=== PATIENT | male | born 1945 | race Caucasian/White ===

== ENCOUNTER 2018-11-02 07:14 | Day surgery (SDC) | payer MEDICARE ==
[2018-10-25 16:27] LABS: BASOPHILS % (AUTO) 0.6 % (0-1); EOSINOPHILS # (AUTO) 0.2 X10'3 (0-0.9); EOSINOPHILS % (AUTO) 2.6 % (0-6); LYMPHOCYTES # (AUTO) 1.4 X10'3 (1.1-4.8); LYMPHOCYTES % (AUTO) 22.6 % (21-51); MEAN CORPUSCULAR HEMOGLOBIN 27.2 PG (27.0-31.0); MEAN CORPUSCULAR VOLUME 82.5 FL (78-98); MEAN PLATELET VOLUME 8.6 FL (7.4-10.4); MONOCYTES # (AUTO) 0.5 X10'3 (0-0.9); MONOCYTES % (AUTO) 8.4 % (2-12); NEUTROPHILS # (AUTO) 4.1 X10'3 (1.8-7.7); NEUTROPHILS % (AUTO) 65.8 % (42-75); PRE OP HEMATOCRIT 36.8 % (42.0-52.0); PRE OP HEMOGLOBIN 12.1 g/dL (14.0-17.9); PRE OP PLATELET COUNT 190 X10'3 (140-440); RED BLOOD COUNT 4.46 X10'6 (4.70-6.10); RED CELL DISTRIBUTION WIDTH 15.1 % (11.5-14.5)
[2018-10-25 16:40] LABS: ALBUMIN 3.2 G/DL (3.4-5.0); ALBUMIN/GLOBULIN RATIO 0.8 (1.1-1.5); ALKALINE PHOSPHATASE 83 IU/L (46-116); BLOOD UREA NITROGEN 10 MG/DL (7-18); BUN/CREATININE RATIO 14.1 (5.4-32.0); CALCIUM 8.8 MG/DL (8.5-10.1); CHLORIDE 100 MMOL/L (99-107); CREATININE 0.71 MG/DL (0.60-1.10); PRE OP ALT 15 U/L (30-65); PRE OP ANION GAP 3 (8-16); PRE OP AST 15 U/L (10-37); PRE OP BILIRUB, TOTAL 0.2 MG/DL (0.0-1.0); PRE OP POTASSIUM 3.7 MMOL/L (3.4-5.1); PRE OP SODIUM 136 MMOL/L (135-145); TOTAL CARBON DIOXIDE 32.7 MMOL/L (24-32); TOTAL PROTEIN 7.3 G/DL (6.4-8.2); eGFR > 90 ML/MIN
[2018-10-25 16:41] LABS: PRE OP GLUCOSE 88 MG/DL (70-104)
[2018-10-25 16:42] LABS: PRE OP PROTIME 10.4 SECONDS (9.0-12.0)
[~2018-11-02] VITALS: Ht 182.9 cm; Wt 118.8 kg
[2018-11-02] VITALS (18 sets, daily range): BP systolic 102–141; BP diastolic 52–80
[~2018-11-02 07:14] MED LIST: ASCO-283 PO; ASPI-612 PO; ATOR40TA PO; BACL10TA PO; BUPR1PAT20 TRANSUR; CALC300T4 PO; CHOL2000 PO; CRAN1CAP5 PO; DOCUMENT DATE & TIME OF BETA-BLOCKER PO ONE; FINA5TAB11 PO; FLO0.4C PO; GABA-532 PO; GUAI200T5 PO; HYDR-3972 PO; LEVE250T PO; LISI-642 PO; MAGN400C PO; MELA10TA2 PO; METO25TA6 PO; OMEG1CAP13 PO; PANT40TA4 PO; UBID1CAP54 PO; VENL75CA61 PO; ampicillin inj 1 GM in normal saline 100ml IV soln 100 ML IV ONE; famotidine 20mg tablet PO ONE; gentamicin inj 240 MG in normal saline 100ml IV soln 94 ML IV ONE; ringers solution, lacted 1,000 ML IV SCH
[2018-11-02] MEDS ORDERED: neomy sulf/polymyxin B sulf. GU irrigation 1ml amp IR ONE (08:52)
[2018-11-02] MEDS ORDERED: MIDAZolam 5mg/5ml vial ONE (09:59)
[2018-11-02] MEDS ORDERED: fentaNYL/PF 50MCG/1 ML 2ML syringe ONE (09:59)
[2018-11-02] MEDS ORDERED: HYDROcodone/acetaminophen 10/325mg tab PO PRN ×2 (11:00→11:30)
--- NOTE | 2018-11-02 11:11 | NUR ---
Received from OR via SURGICAL BED , accompanied by Anesthesiologist VINCENZO and report given by Anesthesiolgist. PATIENT WITH 20G PIV IN RIGHT UE RUNNING LR AT 100. DENIES PAIN. SENSATION LEVEL APPROXIMATELY AT T10-12. DIFFICULT TO OBTAIN 2' HX OF APHASIA. VSS AT THIS TIME. 3 WAY BOWERS IRRIGATION RUNNING AT THIS TIME PINK TINGED URINE IN BOWERS CATHETER. VANNESA RODRIGUEZ APPLIED FOR LOW TEMPERATURE OF 36' C. WILL CONTINUE TO ASSESS. Addendum: 11/02/18 at 1129 by Obed Vargas RN, RN Amended: Links added.
[2018-11-02] MEDS ORDERED: BUPRENORPHINE 10 MCG TRANSUR SCH (11:25)
[2018-11-02] MEDS ORDERED: mag hydrox/Alum hydrox/simeth 30ml oral suspension PO PRN (11:30)
[2018-11-02] MEDS ORDERED: oxybutynin 5mg tablet PO PRN (11:30)
[2018-11-02] MEDS ORDERED: ondansetron/PF 4mg/2ml inj IV PRN (11:30)
[2018-11-02] MEDS ORDERED: acetaminophen 325mg tablet PO PRN (11:30)
[2018-11-02] MEDS ORDERED: proCHLORperazine 10 MG/2 ml inj IV PRN (11:30)
[2018-11-02] MEDS ORDERED: zolpidem 5mg tablet PO PRN (11:30)
--- NOTE | 2018-11-02 11:42 | NUR ---
MD LOYA NOTIFIED OF BLOOD GLUCOSE OF 71. NO ORDERS RECEIVED. Addendum: 11/02/18 at 1142 by Obed Vargas RN, RN Amended: Links added.
--- NOTE | 2018-11-02 12:21 | NUR ---
ALL CRITERIA FOR TRANSFER TO THE FLOOR HAS BEEN ACHIEVED. VSS. BED LOW, CALL LIGHT AND VS. SET IN PLACE. WALE HUITRON PRESENT TO ACCEPT CARE. PATIENT RESTING COMFORTABLY IN BED. NO BELONGINGS SENT WITH PATIENT. URINE CLEAR YELLOW WITH IRRIGATION. Addendum: 11/02/18 at 1225 by Obed Vargas RN, RN Amended: Links added.
--- NOTE | 2018-11-02 12:26 | NUR ---
Patient on the unit, family at bedside
[2018-11-02] MEDS ORDERED: GUAIFENESIN PO SCH (13:00)
[2018-11-02] MEDS: gabapentin 300mg capsule PO SCH ×2 (13:39→20:13)
[2018-11-02] MEDS: baclofen 10mg tablet PO SCH ×2 (13:39→20:14)
[2018-11-02] MEDS: ceFAZolin 1GM/D5W- ADD-VANTAGE 50 ML IV SCH (16:01)
[2018-11-02] MEDS: potassium cl 20mEq in 1/2 NS 1,000 ML IV SCH ×2 (16:01→19:28)
[2018-11-02] MEDS: docusate sod 100mg capsule PO SCH (20:12)
[2018-11-02] MEDS: guaiFENesin ER 600mg tablet PO SCH (20:14)
[2018-11-02] MEDS: tamsulosin 0.4mg capsule PO SCH (20:14)
[2018-11-02] MEDS: venlafaxine XR 75mg capsule (Q24H) PO SCH (20:15)
[2018-11-02] MEDS: levetiracetam 250mg tablet PO SCH (20:16)
[2018-11-02] MEDS: metoprolol tartrate 12.5mg (1/2 tablet) PO SCH (20:16)
[2018-11-02] MEDS ORDERED: non-formulary drug (Atorvastatin Calcium* (Lipitor*) 0.5 TABLET) PO SCH (21:00)
[2018-11-02] MEDS ORDERED: Melatonin 3mg tablet PO SCH (21:00)
[2018-11-02] MEDS ORDERED: atorvastatin 20mg tablet PO SCH (21:00)
[2018-11-03] VITALS: BP 104/50
[2018-11-03] MEDS: ceFAZolin 1GM/D5W- ADD-VANTAGE 50 ML IV SCH ×2 (00:20→07:43)
[2018-11-03] MEDS: potassium cl 20mEq in 1/2 NS 1,000 ML IV SCH ×2 (00:21→09:05)
--- NOTE | 2018-11-03 06:22 | NUR ---
Problems reprioritized. Patient report given, questions answered & plan of care reviewed with Keyla ECHEVARRIA. Addendum: 11/03/18 at 0622 by Riri Rodriguez RN Amended: Links added.
[2018-11-03 06:42] LABS: BASOPHILS % (AUTO) 0.7 % (0-1); EOSINOPHILS # (AUTO) 0.1 X10'3 (0-0.9); EOSINOPHILS % (AUTO) 2.3 % (0-6); HEMATOCRIT 35.4 % (42.0-52.0); HEMOGLOBIN 11.5 g/dl (14.0-17.9); LYMPHOCYTES # (AUTO) 1.4 X10'3 (1.1-4.8); LYMPHOCYTES % (AUTO) 22.8 % (21-51); MEAN CORPUSCULAR HGB CONC 32.6 g/dL (33.0-36.5); MEAN PLATELET VOLUME 8.9 FL (7.4-10.4); MONOCYTES # (AUTO) 0.5 X10'3 (0-0.9); MONOCYTES % (AUTO) 8.1 % (2-12); NEUTROPHILS # (AUTO) 4.2 X10'3 (1.8-7.7); NEUTROPHILS % (AUTO) 66.1 % (42-75); PLATELET COUNT 148 X10'3 (140-440); RED BLOOD COUNT 4.26 X10'6 (4.70-6.10); RED CELL DISTRIBUTION WIDTH 15.2 % (11.5-14.5); WHITE BLOOD COUNT 6.3 X10'3 (4.5-11.0)
--- NOTE | 2018-11-03 06:42 | NUR ---
Patient in room [facility]. I have received report from Riri ECHEVARRIA and had the opportunity to ask questions and assume patient care.
[2018-11-03 06:43] LABS: ALBUMIN 2.6 G/DL (3.4-5.0); ANION GAP 5 (8-16); BLOOD UREA NITROGEN 8 MG/DL (7-18); BUN/CREATININE RATIO 11.3 (5.4-32.0); CHLORIDE 106 MMOL/L (99-107); CREATININE 0.71 MG/DL (0.60-1.10); GLUCOSE 86 MG/DL (70-104); POTASSIUM 4.1 MMOL/L (3.5-5.1); SODIUM 141 MMOL/L (135-145); TOTAL CARBON DIOXIDE 30.2 MMOL/L (24-32); eGFR > 90 ML/MIN
[2018-11-03] MEDS ORDERED: pantoprazole 40mg Tablet.DR PO SCH ×2 (07:30→08:00)
[2018-11-03] MEDS: levetiracetam 250mg tablet PO SCH (07:44)
[2018-11-03] MEDS: guaiFENesin ER 600mg tablet PO SCH (07:47)
[2018-11-03] MEDS: gabapentin 300mg capsule PO SCH ×2 (07:47→13:41)
[2018-11-03] MEDS: baclofen 10mg tablet PO SCH ×2 (07:47→13:41)
[2018-11-03] MEDS: metoprolol tartrate 12.5mg (1/2 tablet) PO SCH (07:48)
[2018-11-03] MEDS: docusate sod 100mg capsule PO SCH (07:48)
[2018-11-03] MEDS: tamsulosin 0.4mg capsule PO SCH (07:48)
[2018-11-03] MEDS: venlafaxine XR 75mg capsule (Q24H) PO SCH (07:49)
[2018-11-03 08:00] VITALS: BP 140/65
[2018-11-03] MEDS ORDERED: calcium carbonate 500mg chew tablet PO SCH (08:00)
[2018-11-03] MEDS ORDERED: ASCORBIC ACID PO SCH (08:00)
[2018-11-03] MEDS ORDERED: non-formulary drug (Ascorbic Acid (Vitamin C) 1 TAB) PO SCH (08:00)
[2018-11-03] MEDS ORDERED: non-formulary drug (Magnesium Oxide (Magnesium) 400 MG) PO SCH (08:00)
[2018-11-03] MEDS ORDERED: ascorbic acid 500mg tablet PO SCH (08:00)
[2018-11-03] MEDS ORDERED: lisinopril 5mg tablet PO SCH (08:00)
[2018-11-03] MEDS ORDERED: [UNRECOGNIZED DRUG - OTHER] PO SCH (08:00)
[2018-11-03] MEDS ORDERED: finasteride 5mg tablet PO SCH (08:00)
[2018-11-03] MEDS ORDERED: magnesium oxide 400mg tablet PO SCH (08:00)
[2018-11-03 11:00] VITALS: BP 140/62
--- NOTE | 2018-11-03 13:24 | NUR ---
CBI emptied, Clamped off. Educated on care of FC, she states that he has a FC at home that she takes care of and is aware. Refused leg bag.
[2018-11-03] MEDS ORDERED: DOCU-28 PO (14:05)
--- NOTE | 2018-11-03 15:07 | NUR ---
Patient discharged on nursing end. CBI discontinued, leg bag refused.
--- NOTE | 2018-11-03 15:18 | NUR ---
Patient discharged from the unit. I walked the patient and family out to the foyer. Patient VS stable, A+O x 4. Patient discharge packet in hand.
[2018-11-09] MEDS ORDERED: BUPRENORPHINE 10 MCG TP SCH (09:00)
== END 2018-11-03 15:40 | disposition home or self-care (01) ==
LOC: PAS 07:14 → SUR 3N 11:28 → PAS 11-03 15:40
PROVIDERS: ATTEND Urology
DX: N40.1 Benign prostatic hyperplasia with lower urinary tract symptoms (principal); N32.0 Bladder-neck obstruction; I69.351 Hemiplegia and hemiparesis following cerebral infarction affecting right dominant side; I25.10 Atherosclerotic heart disease of native coronary artery without angina pectoris; I50.9 Heart failure, unspecified; F32.9 Major depressive disorder, single episode, unspecified; Z95.2 Presence of prosthetic heart valve; Z79.899 Other long term (current) drug therapy; Z79.82 Long term (current) use of aspirin; Z98.890 Other specified postprocedural states; Z87.440 Personal history of urinary (tract) infections; G47.30 Sleep apnea, unspecified; Z87.891 Personal history of nicotine dependence
CPT/HCPCS: 36415; 52630; 80048; 80053; 82948; 85025; 85610; 85730; 86870; 86885; 86900; 86901; 86902; 86905; 86922; 87070; J0290; J0690; J1580; J2250; J3010; J7120; 86920; 88305; A4346; A4615; G0378; J7030

== ENCOUNTER 2019-06-22 13:23 | Emergency (ER) | payer MEDICARE ==
[~2019-06-22] VITALS: Ht 185.4 cm; Wt 119.1 kg
[~2019-06-22 13:23] MED LIST changes: -ASPI-612 PO; +DOCU-28 PO; -DOCUMENT DATE & TIME OF BETA-BLOCKER PO ONE; -UBID1CAP54 PO; -ampicillin inj 1 GM in normal saline 100ml IV soln 100 ML IV ONE; -famotidine 20mg tablet PO ONE; -gentamicin inj 240 MG in normal saline 100ml IV soln 94 ML IV ONE; -ringers solution, lacted 1,000 ML IV SCH
== END 2019-06-22 14:53 | disposition home or self-care (01) ==
LOC: ER 13:24
DX: T17.928A Food in respiratory tract, part unspecified causing other injury, initial encounter (principal); R11.10 Vomiting, unspecified; I25.10 Atherosclerotic heart disease of native coronary artery without angina pectoris; I11.0 Hypertensive heart disease with heart failure; I50.9 Heart failure, unspecified; G89.29 Other chronic pain; Z86.73 Personal history of transient ischemic attack (TIA), and cerebral infarction without residual deficits; Z98.890 Other specified postprocedural states; Z79.899 Other long term (current) drug therapy; X58.XXXA Exposure to other specified factors, initial encounter; Y93.89 Activity, other specified; Y92.89 Other specified places as the place of occurrence of the external cause; Y99.8 Other external cause status
CPT/HCPCS: 71045; 99283